=== PATIENT | female | born 1995 | race Caucasian/White ===

== ENCOUNTER 2022-04-27 18:18 | Emergency (ER) | payer OTHER ==
[~2022-04-27] VITALS: Ht 160 cm; Wt 68.0 kg
[~2022-04-27 18:18] MED LIST: CLARITIN-D 241 EACH PO; MUCINEX1200 MG PO
== END 2022-04-27 21:58 | disposition home or self-care (01) ==
LOC: ER 18:18
DX: M94.0 Chondrocostal junction syndrome [Tietze] (principal)

== ENCOUNTER 2022-09-05 21:48 | Emergency (ER) | payer OTHER ==
[~2022-09-05] VITALS: Ht 157.5 cm; Wt 68.0 kg
[2022-09-06] MEDS ORDERED: NORFLEX100MG PO (01:30)
== END 2022-09-06 01:51 | disposition home or self-care (01) ==
LOC: ER 21:48
DX: M54.6 Pain in thoracic spine (principal); M25.519 Pain in unspecified shoulder

== ENCOUNTER 2023-10-11 08:49 | Emergency (ER) | payer OTHER ==
[~2023-10-11] VITALS: Ht 157.5 cm; Wt 68.9 kg
[~2023-10-11 08:49] MED LIST changes: +NORFLEX100MG PO
[2023-10-11] MEDS ORDERED: FAMOTIDINE/PF 20 MG in 0.9 % SODIUM CHLORIDE 8 ML IV PUSH STA (09:26)
[2023-10-11] MEDS ORDERED: 0.9 % SODIUM CHLORIDE 1,000 ML IV SCH (09:30)
[2023-10-11] MEDS ORDERED: ONDANSETRON HCL 2 MG/ML VIAL IV ONE (09:30)
[2023-10-11] MEDS ORDERED: ONDANSETRON HCL 2 MG/ML VIAL ONE (09:36)
[2023-10-11 09:57] LABS: HEMATOCRIT 39.8 % (36.0-45.00); HEMOGLOBIN 13.3 g/dL (12.0-15.00); MEAN CELL VOLUME 86.8 fL (80.00-100.00); MEAN CORPUSCULAR HEMOGLOBIN 29.1 pg (27.00-32.0); MEAN CORPUSCULAR HGB CONC 33.5 g/dl (32.0-36.0); PLATELET COUNT 364 K/uL (150-450); RED BLOOD COUNT 4.58 M/uL (4.00-6.00); RED CELL DISTRIBUTION WIDTH 13.5 % (11.5-14.5)
[2023-10-11 10:21] LABS: BILIRUBIN TOTAL 0.86 mg/dL (0.3-1.2); CALCIUM 9.5 mg/dL (8.5-10.1); CREATININE SERUM 0.73 mg/dL (0.55-1.02); GFR 94.93; GLOBULINA 4.2 G/DL (2.4-3.5); POTASSIUM 4.22 mEq/L (3.5-5.1); TOTAL PROTEIN 8.2 gm/dL (6.4-8.2)
[2023-10-11] MEDS ORDERED: PEPCID AC20 MG PO (11:45)
[2023-10-11] MEDS ORDERED: ONDANSETRON ODT8 MG PO (11:45)
== END 2023-10-11 12:24 | disposition home or self-care (01) ==
LOC: ER 08:50
PROVIDERS: General Practice
DX: R11.2 Nausea with vomiting, unspecified (principal); K52.9 Noninfective gastroenteritis and colitis, unspecified; I10 Essential (primary) hypertension

== ENCOUNTER 2024-02-09 19:09 | Emergency (ER) | payer OTHER ==
[~2024-02-09] VITALS: Ht 154.9 cm; Wt 68.0 kg
[~2024-02-09 19:09] MED LIST changes: +ONDANSETRON ODT8 MG PO; +PEPCID AC20 MG PO
[2024-02-09 19:24] VITALS: BP 121/74; O2SAT 98
[2024-02-09 21:36] LABS: HEMATOCRIT 36.7 % (36.0-45.00); HEMOGLOBIN 12.5 g/dL (12.0-15.00); MEAN CORPUSCULAR HEMOGLOBIN 29.3 pg (27.00-32.0); MEAN CORPUSCULAR HGB CONC 34.1 g/dl (32.0-36.0); PLATELET COUNT 307 K/uL (150-450); RED BLOOD COUNT 4.27 M/uL (4.00-6.00); RED CELL DISTRIBUTION WIDTH 13.3 % (11.5-14.5)
== END 2024-02-09 23:40 | disposition home or self-care (01) ==
LOC: ER 19:11
DX: J06.9 Acute upper respiratory infection, unspecified (principal); Z20.822 Contact with and (suspected) exposure to COVID-19

== ENCOUNTER 2024-11-02 10:06 | Emergency (ER) | payer OTHER ==
[~2024-11-02] VITALS: Ht 154.9 cm; Wt 78.9 kg
[2024-11-02] MEDS ORDERED: PNV-DHA SOFTGE1 EACH (10:48)
[2024-11-02] MEDS ORDERED: VITABEX IRON C1 EACH (10:49)
[2024-11-02] MEDS ORDERED: ECOTRIN81 MG (10:49)
[2024-11-02] MEDS ORDERED: ACETAMINOPHEN 500 MG GEL..CAP PO STA (11:05)
[2024-11-02] MEDS ORDERED: CETIRIZINE HCL 5 MG/5 ML ML PO STA (11:05)
[2024-11-02] MEDS ORDERED: GUAIFENESIN/DEXTROMETHORPHAN 100MG/10ML BLIST.PACK PO STA (11:05)
[2024-11-02 11:28] LABS: BASO % 0.4 % (0.1-1.2); EOS # 0.17 (0.04-0.54); EOS % 2.1 % (0.7-7.0); LYMPH # 1.21 (1.18-3.74); LYMPH % 14.7 % (19.3-53.1); MEAN PLATELET VOLUME 9.50 fl (9.4-12.4); MONO # 0.57 (0.24-0.82); MONO % 6.9 % (4.7-12.5); NEUT # 5.94 (1.56-6.13); NEUT % 72.1 % (34.0-71.1); RED CELL DISTRIBUTION WIDTH 13.1 % (11.6-14.4)
[2024-11-02 11:45] LABS: COVID-19 AG POSITIVE (NEGATIVE)
[2024-11-02] MEDS ORDERED: ACETAMINOPHEN500 M2 PO (13:33)
[2024-11-02] MEDS ORDERED: MUCINEX DM ER1 EACH PO (13:33)
[2024-11-02] MEDS ORDERED: CETIRIZINE HCL5 MG PO (13:33)
== END 2024-11-02 14:36 | disposition home or self-care (01) ==
LOC: ER 10:09
PROVIDERS: General Practice
DX: Z34.90 Encounter for supervision of normal pregnancy, unspecified, unspecified trimester (principal); Z3A.33 33 weeks gestation of pregnancy; U07.1 COVID-19; B34.9 Viral infection, unspecified; J00 Acute nasopharyngitis [common cold]

== ENCOUNTER 2024-12-01 12:41 | Inpatient (IN) | payer OTHER ==
[~2024-12-01] VITALS: Ht 154.9 cm; Wt 86.6 kg
[~2024-12-01 12:41] MED LIST changes: +ACETAMINOPHEN500 M2 PO; +CETIRIZINE HCL5 MG PO; +ECOTRIN81 MG; +MUCINEX DM ER1 EACH PO; +PNV-DHA SOFTGE1 EACH; +VITABEX IRON C1 EACH
[2024-12-01 12:58] VITALS: BP 122/78
[2024-12-01] MEDS ORDERED: IRON236 MG PO (13:42)
[2024-12-01] MEDS ORDERED: PRENATA CHEWAB1 EACH PO (13:42)
[2024-12-01] MEDS ORDERED: CHILDREN'S ASPI81 MG PO (13:43)
[2024-12-01] MEDS ORDERED: RINGERS SOLUTION,LACTATED 1,000 ML IV SCH (13:45)
[2024-12-01] MEDS ORDERED: CEFAZOLIN SODIUM 1,000 MG VIAL IV SCH (13:45)
[2024-12-01 13:46] LABS: BASO % 0.2 % (0.1-1.2); EOS # 0.03 (0.04-0.54); EOS % 0.3 % (0.7-7.0); LYMPH # 1.49 (1.18-3.74); LYMPH % 15.7 % (19.3-53.1); MEAN PLATELET VOLUME 10.30 fl (9.4-12.4); MONO # 0.40 (0.24-0.82); MONO % 4.2 % (4.7-12.5); NEUT # 7.49 (1.56-6.13); NEUT % 78.9 % (34.0-71.1); RED CELL DISTRIBUTION WIDTH 13.3 % (11.6-14.4)
[2024-12-01 13:58] LABS: URINE APPEARANCE Cloudy; URINE BILIRRUBIN Negative (NEGATIVE); URINE BLOOD Moderate; URINE COLOR Yellow; URINE GLUCOSE Negative (NEGATIVE); URINE KETONE Trace (NEGATIVE); URINE LEUKOCYTE Moderate; URINE NITRATE Negative; URINE PROTEIN Trace (NEGATIVE); URINE UROBILINOGEN 1.0 E.U./dl
[2024-12-01 13:59] LABS: URINE BACTERIA 1274.2 uL (0.0-1933); URINE EPITHELIAL CELLS 24.1 uL (0.0-38.8); URINE RBC 5.5 uL (0.0-20.8); URINE WBC 53.0 uL (0.0-23.2)
[2024-12-01 14:05] LABS: URINE CAST 0.14 uL (0.0-1.40)
[2024-12-01 14:20] LABS: INR < 0.93
[2024-12-01 14:34] LABS: ALT/SGPT 52.0 U/L (12-78); AST/SGOT 30.0 U/L (15-37); BILIRUBIN TOTAL 0.33 mg/dL (0.3-1.2); BUN CREA RATIO 18.0 (7.0-25.0); CREATININE SERUM 0.55 mg/dL (0.55-1.02); GFR 130.68; GLOBULINA 4.3 G/DL (2.4-3.5); GLUCOSE FASTING 76.0 mg/dL (65-100); OSMOLALITY SERUM 279.0 MOSM/KG (275-295)
[2024-12-01 15:06] VITALS: BP 117/73
[2024-12-01] MEDS ORDERED: ERYTHROMYCIN BASE OPHT 1GM EACH TUBE OP ONE (19:00)
[2024-12-01] MEDS ORDERED: OXYTOCIN 10 UNITS/ML VIAL IV ONE (19:00)
[2024-12-01] MEDS ORDERED: KETOROLAC TROMETHAMINE 60 MG VIAL IM ONE (20:15)
[2024-12-01] MEDS ORDERED: MORPHINE SULFATE 4 MG/ML VIAL IV SCH (20:15)
[2024-12-01] MEDS ORDERED: MORPHINE SULFATE 4 MG/ML VIAL IV ONE (20:30)
[2024-12-01 21:36] VITALS: BP 105/71
[2024-12-02] VITALS: BP 116/77
[2024-12-02 02:44] LABS: BASO % 0.2 % (0.1-1.2); EOS # 0.01 (0.04-0.54); EOS % 0.1 % (0.7-7.0); LYMPH # 1.36 (1.18-3.74); LYMPH % 9.3 % (19.3-53.1); MEAN PLATELET VOLUME 10.50 fl (9.4-12.4); MONO # 0.44 (0.24-0.82); MONO % 3.0 % (4.7-12.5); NEUT # 12.68 (1.56-6.13); NEUT % 86.9 % (34.0-71.1); RED CELL DISTRIBUTION WIDTH 13.2 % (11.6-14.4)
[2024-12-02 05:00] VITALS: BP 120/71
[2024-12-02] MEDS ORDERED: OxyCODONE HCL 5 MG TABLET (ROXICODONE) PO SCH ×2 (07:00→12:00)
[2024-12-02] MEDS ORDERED: ACETAMINOPHEN 325 MG TABLET PO SCH ×2 (07:00→12:00)
[2024-12-02 08:00] VITALS: BP 124/73
[2024-12-02] MEDS ORDERED: DOCUSATE SODIUM 100MG CAP PO SCH (09:00)
[2024-12-02] MEDS ORDERED: SIMETHICONE 125 MG CAPSULE PO SCH (09:00)
[2024-12-02 16:00] VITALS: BP 118/74
[2024-12-02] MEDS ORDERED: IRON/V.C/V.B12/FOLIC A/VIT. E 1 CAPL CAPLET PO SCH (17:00)
[2024-12-02 20:00] VITALS: BP 130/86
[2024-12-02] MEDS ORDERED: KETOROLAC TROMETHAMINE 60 MG VIAL IM STA (21:20)
[2024-12-03] VITALS: BP 106/71
[2024-12-03 04:00] VITALS: BP 1147/75
[2024-12-03 08:00] VITALS: BP 106/68
[2024-12-03 16:51] VITALS: BP 112/72
[2024-12-03] MEDS ORDERED: MAGNESIUM HYDROXIDE 30 ML BLIST.PACK PO ONE (17:15)
[2024-12-03] MEDS ORDERED: MINERAL OIL 30 ML BLIST.PACK PO ONE (17:15)
[2024-12-04] VITALS: BP 107/71
[2024-12-04 04:00] VITALS: BP 112/74
[2024-12-04 08:01] VITALS: BP 131/88
[2024-12-04 13:06] VITALS: BP 130/89
[2024-12-04 15:56] VITALS: BP 121/83
== END 2024-12-04 16:36 | disposition home or self-care (01) | DRG 785 ==
LOC: OB/GYN 12:41 → LDR 12:41 → OB/GYN 19:32
PROVIDERS: ADMIT Specialist; ATTEND Specialist
PROC: 0UB70ZZ Excision of Bilateral Fallopian Tubes, Open Approach (ICD-10-PCS; 2024-12-01)
PROC: 4A1HXCZ Monitoring of Products of Conception, Cardiac Rate, External Approach (ICD-10-PCS; 2024-12-01)
PROC: 10D00Z1 Extraction of Products of Conception, Low, Open Approach (ICD-10-PCS; principal; 2024-12-01 18:15)
DX: O34.211 Maternal care for low transverse scar from previous cesarean delivery (principal); O99.824 Streptococcus B carrier state complicating childbirth; O13.4 Gestational [pregnancy-induced] hypertension without significant proteinuria, complicating childbirth; Z30.2 Encounter for sterilization; Z3A.37 37 weeks gestation of pregnancy; Z37.0 Single live birth

== ENCOUNTER 2024-12-10 09:19 | Emergency (ER) | payer OTHER ==
[~2024-12-10] VITALS: Ht 154.9 cm; Wt 82.1 kg
[~2024-12-10 09:19] MED LIST changes: +CHILDREN'S ASPI81 MG PO; +IRON236 MG PO; +PRENATA CHEWAB1 EACH PO
[2024-12-10 11:08] LABS: BASO % 0.6 % (0.1-1.2); EOS # 0.35 (0.04-0.54); EOS % 3.5 % (0.7-7.0); LYMPH # 1.95 (1.18-3.74); LYMPH % 19.6 % (19.3-53.1); MEAN PLATELET VOLUME 9.40 fl (9.4-12.4); MONO # 0.28 (0.24-0.82); MONO % 2.8 % (4.7-12.5); NEUT # 7.21 (1.56-6.13); NEUT % 72.3 % (34.0-71.1); RED CELL DISTRIBUTION WIDTH 13.2 % (11.6-14.4)
[2024-12-10 12:19] LABS: URINE APPEARANCE Clear; URINE BILIRRUBIN Negative (NEGATIVE); URINE BLOOD Small; URINE COLOR Yellow; URINE GLUCOSE Negative (NEGATIVE); URINE KETONE Negative (NEGATIVE); URINE LEUKOCYTE Small; URINE NITRATE Negative; URINE PROTEIN Negative (NEGATIVE); URINE UROBILINOGEN 0.2 E.U./dl
[2024-12-10 12:23] LABS: URINE BACTERIA 87.5 uL (0.0-1933); URINE EPITHELIAL CELLS 13.9 uL (0.0-38.8); URINE WBC 19.9 uL (0.0-23.2)
[2024-12-10 12:31] LABS: URINE CAST 0.00 uL (0.0-1.40); URINE RBC 1.0 uL (0.0-20.8)
== END 2024-12-10 15:48 | disposition home or self-care (01) ==
LOC: ER 09:19
PROVIDERS: General Practice
DX: R10.2 Pelvic and perineal pain (principal)